=== PATIENT | male | born 1975 | race Hispanic/Latino ===

== ENCOUNTER 2024-01-20 22:26 | Emergency (ER) | payer BC ==
[~2024-01-20] VITALS: Ht 165.1 cm; Wt 77.1 kg
[2024-01-20 23:08] LABS: APPEARANCE,URINE CLEAR (CLEAR); BILIRUBIN,URINE NEGATIVE (NEGATIVE); COLOR,URINE COLORLESS (YELLOW); GLUCOSE, URINE (UA) NEGATIVE (NEGATIVE); KETONES,URINE NEGATIVE (NEGATIVE); LEUKOCYTE ESTERASE ,URINE 250 Leu/uL (NEGATIVE); NITRATE,URINE NEGATIVE (NEGATIVE); OCCULT BLOOD,URINE LARGE (NEGATIVE); PH,URINE 5.5 (5.0-8.0); PROTEIN,URINE NEGATIVE (NEGATIVE); UROBILINOGEN,URINE 0.2 mg/dL (0.2-1.0)
[2024-01-20 23:18] LABS: ADD UA MICROSCOPIC YES
[2024-01-20 23:25] LABS: BACTERIA,URINE None Seen /HPF (None Seen); MUCUS,URINE Rare LPF (None Seen); RBC,URINE 26-50 /HPF (0-1)
[2024-01-21 00:37] LABS: HEMATOCRIT 44.2 % (42-54); MEAN CORPUSCULAR HEMOGLOBIN 30.6 pg (27.0-33.0); MEAN CORPUSCULAR HGB CONC 34.4 g/dL (32.0-36.0); MEAN CORPUSCULAR VOLUME 89.1 fL (79-99); PLATELET COUNT (AUTO) 182 K/uL (130-400); RED BLOOD CELL COUNT(AUTO) 4.96 MIL/uL (4.50-6.20); RED CELL DISTRIBUTION WIDTH 12.6 % (11.0-15.5); WHITE BLOOD COUNT (AUTO) 6.6 K/uL (4.8-10.8)
[2024-01-21 00:48] LABS: CREATININE 0.8 mg/dL (0.5-1.3); POTASSIUM 3.6 mmol/L (3.5-5.1)
[2024-01-21 00:53] LABS: ALBUMIN 3.7 g/dL (3.5-5.0); BILIRUBIN,TOTAL 0.4 mg/dL (0.2-1.0); TOTAL PROTEIN, SERUM 7.2 g/dL (6.0-8.3)
[2024-01-21 00:54] LABS: BASOPHILS # (AUTO) 0.04 K/uL (0.00-0.20); BASOPHILS % (AUTO) 0.6 % (0.0-5.0); EOSINOPHILS # (AUTO) 0.23 K/uL (0.00-0.70); EOSINOPHILS % (AUTO) 3.5 % (0.0-8.0); IMMATURE GRANULOCYTE ABSOLUTE 0.02 K/uL (0-1); LYMPHOCYTES # (AUTO) 2.8 K/uL (1.0-4.8); LYMPHOCYTES % (AUTO) 42.1 % (21.0-51.0); MONOCYTES # (AUTO) 0.7 K/uL (0.1-1.0); MONOCYTES % (AUTO) 10.4 % (3.0-13.0); NEUTROPHILS # (AUTO) 2.8 K/uL (1.8-7.7); NEUTROPHILS % (AUTO) 43.1 % (40.0-77.0)
[2024-01-21] MEDS ORDERED: IOHEXOL 350 MG/ML 100ML INFUS..BTL IV ONE (01:02)
[2024-01-21 04:47] VITALS: BP 134/90; PULSE 68; RESP 18; TEMP 98.3; O2SAT 98
== END 2024-01-21 04:51 | disposition home or self-care (01) ==
LOC: EDH 22:26
DX: N20.0 Calculus of kidney (principal); R31.0 Gross hematuria; Z98.890 Other specified postprocedural states
CPT/HCPCS: 99284; 74178; 80053; 85025; 87086 ×2; 87186; 81001; 36415; Q9967

== ENCOUNTER 2025-02-25 13:49 | Emergency (ER) | payer BC ==
[~2025-02-25] VITALS: Ht 165.1 cm; Wt 69.9 kg
--- NOTE | 2025-02-25 13:55 | ERN ---
ED Note History of Present Illness Stated Complaint: NUMBNESS Chief Complaint: Numbness Time Seen by MD: 13:52 Time Seen by Midlevel: 13:57 Dictation: Mr Hidalgo is a 49 year old male with no reported chronic health issues who presented to the Emergency Department this afternoon for evaluation of numbness of his hands. He states that last evening he developed some posterior neck pain. He denies injury/fall or history of similar symptoms. He states he took a Tylenol p.m. and went to bed. He states he woke today with complaints of numbness in both of his hands. He states this afternoon symptoms worsened and he became anxious, developed headache, and had rapid heart rate. He denies fever, chills, shortness of breath, cough, chest pain, palpitations, edema, abdominal pain, nausea, vomiting, hematemesis, constipation, diarrhea, melena, hematochezia, dysuria, hematuria, flank pain, headache, dizziness, or focal weakness/paresthesia. Denies use of alcohol or recreational drugs. Allergies: Coded Allergies: No Known Allergies (Unverified Allergy, Unknown, 01/20/24) Home Meds Active Scripts Hydroxyzine HCl (Hydroxyzine HCl) 10 Mg Tablet, 1 TAB PO TID for anxiety, #6 TAB 0 Refills Prov:SHERRIE MAURO NP 02/25/25 Ondansetron (Ondansetron Odt) 4 Mg Tab.rapdis, 4 MG PO Q6HPRN PRN for nausea, #15 TAB 0 Refills Prov:SHERRIE MAURO NP 02/25/25 Sulfamethoxazole/Trimethoprim (Bactrim Ds Tablet) 800 Mg-160 Mg Tablet, 1 TAB PO BID for 10 Days, #20 TAB 0 Refills Prov:SHERRIE MAURO NP 02/25/25 Past Medical History Past Medical History: No Pertinent History Surgical History: Cholecystectomy, Other Surgical History Other: LEFT TESTICLE SX RN Note Reviewed/Agreed w/PFSH: Yes Review of System Dictation REVIEW OF SYSTEMS: CONSTITUTIONAL: Patient denies fevers, chills, sweats and weight changes. EYES: Patient denies any visual symptoms. EARS, NOSE, AND THROAT: No difficulties with hearing. No symptoms of rhinitis or sore throat. CARDIOVASCULAR: Patient denies chest pains, palpitations, orthopnea and paroxysmal nocturnal dyspnea. RESPIRATORY: No dyspnea on exertion, no wheezing or cough. GI: No nausea, vomiting, diarrhea, constipation, abdominal pain, hematochezia or melena. : No urinary hesitancy or dribbling. No nocturia or urinary frequency. No abnormal urethral discharge. MUSCULOSKELETAL: Reports posterior neck pain. NEUROLOGIC: No chronic headaches, no seizures. Denies balance issues, Denies difficulty swallowing, difficulty speaking or vision changes. Patient denies focal weakness. He reports numbness and tingling to both hands. Reports posterior headache. PSYCHIATRIC: Patient denies problems with mood disturbance. Reports feeling anxious. ENDOCRINE: No excessive urination or excessive thirst. DERMATOLOGIC: Patient denies any rashes or skin changes. Initial Vital Sign VS Vital Signs Date Time Temp Pulse Resp B/P (MAP) Pulse Ox O2 Delivery O2 Flow Rate FiO2 02/25/25 13:51 99.0 138 20 145/92 98 Room Air 0 02/25/25 13:55 21 Physical Exam Dictation Vital signs: Reviewed. Afebrile Constitutional: Slightly anxious. Significant other at bedside Head/Face: Normocephalic, atraumatic. Eyes: Periorbital areas with no swelling, redness, or edema. Lids and lashes are normal. Conjunctival injection is absent. Sclera anicteric. Pupils equal, round, reactive to light. ENT: Pinnas intact and no signs of trauma or erythema. Ear canals clear and no discharge. TMs no erythema. No nasal discharge or bleeding noted. Oropharynx with no exudate, redness, swelling, masses, exudates, or evidence of obstruction. Uvula midline. Mucous membranes moist. Neck: Trachea midline, no masses palpated, and no cervical lymphadenopathy. No swelling. Supple, full range of motion. Chest/Axilla: No tenderness, no crepitus, no paradoxical movement, no retractions. Cardiovascular: Regular rate, regular rhythm, no murmur, no gallops. Symmetric pulses. No peripheral edema. 12 lead EKG reflects a sinus tachycardia; rate 107. There are no acute ST-T changes. BP with slight elevation; 145/92 Respiratory: Tachypneic; RR 22 Lung sounds clear; no wheezes, rales or rhonchi. Room air SpO2 98% Gastrointestinal: Inspection is normal. No distention is appreciated. Bowel sounds are normal. No mass or organomegaly . There is no tenderness. No rebound. No rigidity. No voluntary or involuntary guarding. No Delong's sign. : Urine cloudy/yellow. Negative CVA tenderness bilaterally. Neurological: Normal speech, gross motor function intact, gross sensory function intact. No focal weakness. Musculoskeletal/Extremities: All extremities have full range of motion, no pain or tenderness on palpation. Symmetric pulses. Integumentary: Intact. Skin is normal color, warm and dry. Cap refill less than 2 seconds. Results (Laboratory/Radiology) Laboratory/Radiology Laboratory Tests Test 02/25/25 14:12 02/25/25 14:13 White Blood Count 11.9 K/uL (4.8-10.8) H Red Blood Count 5.14 MIL/uL (4.50-6.20) Hemoglobin 15.7 g/dL (14.0-18.0) Hematocrit 45.0 % (42-54) Mean Corpuscular Volume 87.5 fL (79-99) Mean Corpuscular Hemoglobin 30.5 pg (27.0-33.0) Mean Corpuscular Hemoglobin Concent 34.9 g/dL (32.0-36.0) Red Cell Distribution Width 12.9 % (11.0-15.5) Platelet Count 243 K/uL (130-400) Mean Platelet Volume 10.2 fL (7.5-10.5) Immature Granulocyte % (Auto) 0.3 % (0-1) Neutrophils (%) (Auto) 75.8 % (40.0-77.0) Lymphocytes (%) (Auto) 18.0 % (21.0-51.0) L Monocytes (%) (Auto) 5.4 % (3.0-13.0) Eosinophils (%) (Auto) 0.2 % (0.0-8.0) Basophils (%) (Auto) 0.3 % (0.0-5.0) Neutrophils # (Auto) 9.0 K/uL (1.8-7.7) H Lymphocytes # (Auto) 2.2 K/uL (1.0-4.8) Monocytes # (Auto) 0.6 K/uL (0.1-1.0) Eosinophils # (Auto) 0.02 K/uL (0.00-0.70) Basophils # (Auto) 0.04 K/uL (0.00-0.20) Absolute Immature Granulocyte (auto 0.04 K/uL (0-1) Nucleated Red Blood Cells 0.0 % (0.0-0.19) Sodium Level 140 mmol/L (136-145) Potassium Level 3.4 mmol/L (3.5-5.1) L Chloride Level 101 mmol/L (101-111) Carbon Dioxide Level 18 mmol/L (21-32) L Blood Urea Nitrogen 9 mg/dL (7-18) Creatinine 1.2 mg/dL (0.5-1.3) Glomerular Filtration Rate Calc 75 mL/min (>90) Random Glucose 138 mg/dL (70-105) H Total Calcium 9.1 mg/dL (8.5-10.1) Total Bilirubin 0.7 mg/dL (0.2-1.0) Direct Bilirubin 0.2 mg/dL (0.0-0.3) Aspartate Amino Transf (AST/SGOT) 14 U/L (10-37) Alanine Aminotransferase (ALT/SGPT) 23 U/L (12-78) Alkaline Phosphatase 89 U/L (50-136) Troponin I High Sensitivity < 4 ng/L (4-75) L Total Protein 7.6 g/dL (6.0-8.3) Albumin 4.1 g/dL (3.5-5.0) Urine Color YELLOW (YELLOW) Urine Appearance CLOUDY (CLEAR) H Urine pH 6.5 (5.0-8.0) Urine Specific [place] 1.021 (1.001-1.031) Urine Protein 30 mg/dL (NEGATIVE) H Urine Glucose (UA) NEGATIVE mg/dL (NEGATIVE) Urine Ketones 20 mg/dL (NEGATIVE) H Urine Occult Blood LARGE (NEGATIVE) H Urine Nitrate NEGATIVE (NEGATIVE) Urine Bilirubin NEGATIVE mg/dL (NEGATIVE) Urine Urobilinogen 2.0 mg/dL (0.2-1.0) H Urine Leukocyte Esterase 500 Abe/uL (NEGATIVE) H Urine RBC TNTC /HPF (0-1) H Urine WBC TNTC /HPF (0-1) H Urine Bacteria RARE /HPF (None Seen) Urine Yeast RARE /HPF (None Seen) Urine Opiates Screen NEGATIVE (NEGATIVE) Urine Barbiturates Screen NEGATIVE (NEGATIVE) Urine Phencyclidine Screen NEGATIVE (NEGATIVE) Urine Amphetamines Screen NEGATIVE (NEGATIVE) Urine Benzodiazepines Screen NEGATIVE (NEGATIVE) Urine Cocaine Screen NEGATIVE (NEGATIVE) Urine Marijuana (THC) Screen NEGATIVE (NEGATIVE) Labs Reviewed?: Yes EKG Comment: EKG Interpretation: Time Reviewed: 1409 Ventricular rate: 107 bpm CA Interval: 132 ms QRS duration: [address] segment elevation or depression. Clinical impression: Sinus tachycardia EKG Reviewed and interpreted by Dr. Velez X-RAY Comment: PATIENT: LESVIA HIDALGO MR#: [id number] : 1975 SEX: M AGE: 49 LOCATION: [facility] ORDER 1401 STATUS: [facility] ER REPORT#: [id number] SERVICE 1358 REASON: tachycardia ORDERING PHYSICIAN: SHERRIE MAURO NP PROCEDURE: CXR1VW - CHEST 1VW CHEST 1VW REASON: tachycardia COMPARISON: None. FINDINGS: Single view of the chest was obtained. Lungs are clear. Heart size is normal. There is no pulmonary vascular congestion. Mediastinum and bony thorax appear unremarkable. IMPRESSION: 1. Normal single view chest x-ray. DICTATED BY: DANI BATRES MD DATE: 02/25/251515 ELECTRONICALLY SIGNED BY: DANI BATRES MD DATE: 02/25/251518 CT Scan Comment: PATIENT: LESVIA HIDALGO MR#: [id number] : 1975 SEX: M AGE: 49 LOCATION: [facility] ORDER 1428 STATUS: REG ER [facility] REPORT#: [id number] SERVICE 142 REASON: posterior neck pain, hand numbness ORDERING PHYSICIAN: SHERRIE MAURO NP PROCEDURE: C SPIN WO - CT CERVICAL SPINE W/O CONTRAST EXAM: CT Cervical Spine Without IV contrast. CLINICAL HISTORY: posterior neck pain, hand numbness TECHNIQUE: Axial computed tomography images of the cervical spine without intravenous contrast. Sagittal and coronal reformatted images were generated. COMPARISON: None provided. FINDINGS: ALIGNMENT: Bony alignment is anatomic. DEGENERATIVE CHANGES: Mild degenerative changes with disc space narrowing and small osteophytes. SOFT TISSUES: The prevertebral soft tissues are within normal limits. BONES: No acute fracture or aggressive appearing osseous lesion. IMPRESSION: No fracture or dislocation in the cervical spine. Mild degenerative change. /[place] DICTATED BY: JERI ORR MD DATE: 02/25/251612 ELECTRONICALLY SIGNED BY: JERI ORR MD DATE: 02/25/251612 PATIENT: LESVIA HIDALGO MR#: [id number] : 1975 SEX: M AGE: 49 LOCATION: [facility] ORDER 27 STATUS: REG REPORT#: [id number] SERVICE 25 REASON: posterior neck pain, hand numbness ORDERING PHYSICIAN: SHERRIE MAURO NP PROCEDURE: HEAD WO - CT HEAD/BRAIN W/O CONTRAST EXAM: CT Head Without IV contrast. CLINICAL HISTORY: posterior neck pain, hand numbness TECHNIQUE: Axial computed tomography images of the head/brain without intravenous contrast. COMPARISON: None provided. FINDINGS: BRAIN: No evidence of acute hemorrhage. No mass lesion. No CT evidence for acute territorial infarct. No midline shift or extra-axial collections. VENTRICLES: No hydrocephalus. ORBITS: The orbits are unremarkable. SINUSES AND MASTOIDS: The paranasal sinuses and mastoid air cells are clear. BONES: No fracture. SOFT TISSUES: Unremarkable. IMPRESSION: No acute intracranial abnormality. /[place] DICTATED BY: JERI ORR MD DATE: 02/25/251613 ELECTRONICALLY SIGNED BY: JERI ORR MD DATE: 02/25/251613 ED Course ED Course Orders Procedure Category Date Status Time 12 Lead Ekg Tracing- EKG 02/25/25 Complete Technical 13:58 Cbc With Differential LAB 02/25/25 Complete 13:58 Basic Metabolic Panel LAB 02/25/25 Complete 13:58 Hepatic Function Panel LAB 02/25/25 Complete 13:58 Urinalysis Profile LAB 02/25/25 Complete 13:58 Drug Screen Urine LAB 02/25/25 Complete 13:58 Troponin I High LAB 02/25/25 Complete Sensitivity 13:58 Chest 1vw RAD 02/25/25 Resulted 13:58 Saline Lock Iv CPOE 02/25/25 Transmitted 13:58 0.9%Nacl 1000ml (Ns PHA 02/25/25 Complete 1000ml) 14:00 Lorazepam 2 Mg PHA 02/25/25 Complete (Ativan) 14:30 Diazepam 5 Mg/Ml 2 Ml PHA 02/25/25 Complete Syg (Valium 5 Mg/M 14:30 Ct Head/Brain W/O CT 02/25/25 Resulted Contrast 14:26 Ct Cervical Spine W/O CT 02/25/25 Resulted Contrast 14:26 Culture Urine JENNIFER 02/25/25 In Process 14:38 0.9% Nacl 500ml PHA 02/25/25 In Process Iv.Soln (Ns 500ml 16:00 Potassium Chloride PHA 02/25/25 In Process 20meq Er (K-Dur/Klor- 16:00 Ceftriaxone 1g Vial PHA 02/25/25 In Process (Rocephine 1g Inj) 16:30 Current Medications Medications (Trade) Dose Ordered Sig/Josefa Route PRN Reason Start Time Stop Time Status Last Admin Dose Admin Ceftriaxone Sodium (ROCEphine 1G INJ) 1 gm ONCE IVPB 02/25/25 16:30 02/25/25 20:30 Diazepam (VALium 5 MG/ML 2 ML SYG) 2.5 mg ONCE ONCE IVP 02/25/25 14:30 02/25/25 14:31 DC 02/25/25 14:45 Lorazepam 40 mg/ Sodium Chloride 40 ml @ 0 mls/hr PROTOCOL IVP 02/25/25 14:30 02/25/25 14:30 DC Potassium Chloride (K-Dur/Klor-Con 20meq) 40 meq ONCE PO 02/25/25 16:00 02/25/25 20:00 Sodium Chloride 500 ml @ 0 mls/hr ONCE IV 02/25/25 16:00 02/26/25 15:59 Sodium Chloride 1,000 ml @ 0 mls/hr ONCE ONCE IV 02/25/25 14:00 02/25/25 14:03 DC 02/25/25 14:45 Vital Signs Date Time Temp Pulse Resp B/P (MAP) Pulse Ox O2 Delivery O2 Flow Rate FiO2 02/25/25 15:45 98.2 85 12 123/82 98 Room Air* 0 21 02/25/25 13:55 99.0 138 20 145/92 98 Room Air* 0 21 02/25/25 13:51 99.0 138 20 145/92 98 Room Air 0 Patient arrived to ED tachycardic and tachypneic/hyperventilating and complaining of numbness to both hands as well as posterior neck/head pain. STAT noncontrast CT scan of brain negative for hemorrhage. CT cervical spine negative for fracture or severe stenosis. Laboratory findings as noted below. WBC 11.9, K 3.4, CO2 18, and . Troponin negative. UDS negative. UA cloudy; + protein, blood, ketones, leukocyte esterase, and UWBC TNTC. UCX pending. Symptoms resolved following dose Valium and NS 1500ml IV as bolus. He also received doses po KCL and IV dose Rocephin. . Repeat BP 123/82 and HR 82. He is calm. Voiding without difficulty/ negative CVA tenderness bilaterally. Findings were discussed with patient and significant other. They will follow up early next week at [facility] Medical Decision Making MDM MDM: Differential diagnosis: Intracranial hemorrhage, stroke, cervical stenosis, electrolyte derangement, tachy arrhythmia, anxiety reaction Rationale: Tests considered and ordered secondary to shared decision making include: EKG, x-ray, CT, lab Previous outside records reviewed: Old ER visits. Risk of complication and/or morbidity or mortality of patient management: None Medications-Per medication reconciliation Need for hospitalization: Patient does not meet criteria for hospitalization. Need for emergency major/minor surgery: No There are no social concerns with this patient. Prescription drug management: Bactrim DS, Zofran, Hydroxyzine Prescriptions will include symptomatic care Patient's prior external medical records from other ER visits were reviewed by me as indicated. Prior testing and results from previous visits were reviewed. Prior tests were taken into account with medical decision making and resource utilization, independent historian/historians were used to obtain complete medical history. I independently interpreted the test that were performed, results were reviewed by me and considered findings on radiology if ordered. Medical management and examination interpretation discussions were had by me with other qualified healthcare professionals as indicated for the patient's care. DX & DISP Disposition: Discharge Departure Impression: Primary Impression: Anxiety reaction Additional Impressions: UTI (urinary tract infection), Dehydration, Hypo kalemia Condition: Stable Scripts Hydroxyzine HCl (Hydroxyzine HCl) 10 Mg Tablet 1 TAB PO TID for anxiety, #6 TAB 0 Refills Prov: SHERRIE MAURO NP 02/25/25 Ondansetron (Ondansetron Odt) 4 Mg Tab.rapdis 4 MG PO Q6HPRN PRN for nausea, #15 TAB 0 Refills Prov: SHERRIE MAURO NP 02/25/25 Sulfamethoxazole/Trimethoprim (Bactrim Ds Tablet) 800 Mg-160 Mg Tablet 1 TAB PO BID for 10 Days, #20 TAB 0 Refills Prov: SHERRIE MAURO NP 02/25/25 Additional Instructions: You were diagnosed with urinary tract infection which is usually caused by bacteria in the blood. Continue the antibiotic Bactrim DS twice daily until finished. You should continue the antibiotic even if you are feeling better. Drink plenty of fluids as this helps flush bacteria from your urinary tract. Avoid alcohol and caffeine which can irritate the bladder. You may take acetaminophen or ibuprofen as needed for discomfort. You may take Zofran ODT as needed for nausea. Your potassium level was slightly low today and he received treatment in the ED. Low potassium can cause symptoms like muscle cramps, weakness, irregular heartbeats, or fatigue. Eat potassium rich foods ( bananas, oranges, tomatoes, potatoes), spinach, and beans. Your symptoms were likely worsened or triggered by an anxiety reaction. This is common during an acute illness and usually improves as your condition stabilized. Practice calming techniques such as slow deep breathing, grounding exercises, or gentle movement. You may take hydroxyzine every 8 hours as needed for anxiety. Follow up with your primary care physician early next week. Return to the emergency department if you have chest pain, trouble breathing or symptoms that you feel are concerning. Referrals: KIMBER CLARK MD (PCP) Time of Disposition: 16:25 SHERRIE MAURO NP Feb 25, 2025 13:55
[2025-02-25 14:25] LABS: IMMATURE GRANULOCYTE ABSOLUTE 0.04 K/uL (0-1); NUCLEATED RED BLOOD CELLS 0.0 % (0.0-0.19); PLATELET COUNT (AUTO) 243 K/uL (130-400); RED BLOOD CELL COUNT(AUTO) 5.14 MIL/uL (4.50-6.20); RED CELL DISTRIBUTION WIDTH 12.9 % (11.0-15.5); WHITE BLOOD COUNT (AUTO) 11.9 K/uL (4.8-10.8)
[2025-02-25 14:30] LABS: CREATININE 1.2 mg/dL (0.5-1.3); GLOMERULAR FILTR. RATE CALC 75.0 mL/min (>90); GLUCOSE,RANDOM 138.0 mg/dL (70-105); SODIUM SERUM 140.0 mmol/L (136-145); UREA NITROGEN, BLOOD 9.0 mg/dL (7-18)
[2025-02-25] MEDS ORDERED: LORAZEPAM IVP SCH (14:30)
[2025-02-25] MEDS ORDERED: [UNRECOGNIZED DRUG - OTHER] IVP SCH (14:30)
[2025-02-25 14:34] LABS: ASPARTATE AMINOTRANSFERASE 14.0 U/L (10-37); TOTAL PROTEIN, SERUM 7.6 g/dL (6.0-8.3)
[2025-02-25 14:36] LABS: APPEARANCE,URINE CLOUDY (CLEAR); GLUCOSE, URINE (UA) NEGATIVE (NEGATIVE); LEUKOCYTE ESTERASE ,URINE 500 Leu/uL (NEGATIVE); NITRATE,URINE NEGATIVE (NEGATIVE); OCCULT BLOOD,URINE LARGE (NEGATIVE)
[2025-02-25 14:38] LABS: ADD UA MICROSCOPIC YES
[2025-02-25 14:42] LABS: YEAST,URINE BUDDING RARE /HPF (None Seen)
[2025-02-25] MEDS: 0.9%NACL 1000ML 1,000 ML IV ONE (14:45)
[2025-02-25 14:56] LABS: AMPHET/METH SCREEN,URINE NEGATIVE (NEGATIVE); BARBITURATE SCREEN, URINE NEGATIVE (NEGATIVE); CANNABINOID SCREEN,URINE NEGATIVE (NEGATIVE); COCAINE SCREEN,URINE NEGATIVE (NEGATIVE)
--- NOTE | 2025-02-25 15:14 | HMCIMG ---
EXAM: CT Cervical Spine Without IV contrast. CLINICAL HISTORY: posterior neck pain, hand numbness TECHNIQUE: Axial computed tomography images of the cervical spine without intravenous contrast. Sagittal and coronal reformatted images were generated. COMPARISON: None provided. FINDINGS: ALIGNMENT: Bony alignment is anatomic. DEGENERATIVE CHANGES: Mild degenerative changes with disc space narrowing and small osteophytes. SOFT TISSUES: The prevertebral soft tissues are within normal limits. BONES: No acute fracture or aggressive appearing osseous lesion. IMPRESSION: No fracture or dislocation in the cervical spine. Mild degenerative change. /[place]
--- NOTE | 2025-02-25 15:15 | HMCIMG ---
EXAM: CT Head Without IV contrast. CLINICAL HISTORY: posterior neck pain, hand numbness TECHNIQUE: Axial computed tomography images of the head/brain without intravenous contrast. COMPARISON: None provided. FINDINGS: BRAIN: No evidence of acute hemorrhage. No mass lesion. No CT evidence for acute territorial infarct. No midline shift or extra-axial collections. VENTRICLES: No hydrocephalus. ORBITS: The orbits are unremarkable. SINUSES AND MASTOIDS: The paranasal sinuses and mastoid air cells are clear. BONES: No fracture. SOFT TISSUES: Unremarkable. IMPRESSION: No acute intracranial abnormality. /[place]
--- NOTE | 2025-02-25 15:19 | HMCIMG ---
CHEST 1VW REASON: tachycardia COMPARISON: None. FINDINGS: Single view of the chest was obtained. Lungs are clear. Heart size is normal. There is no pulmonary vascular congestion. Mediastinum and bony thorax appear unremarkable. IMPRESSION: 1. Normal single view chest x-ray.
[2025-02-25] MEDS ORDERED: ONDA-243 PO (16:11)
[2025-02-25] MEDS ORDERED: HYDR-3830 PO (16:11)
[2025-02-25] MEDS ORDERED: SULF1TAB42 PO (16:11)
--- NOTE | 2025-02-25 16:16 | EKG ---
[facility] Test Date: 2025-02-25 Test Time: 14:09:54 Pat Name: LESVIA HIDALGO Department: ED Room: Gender: [employer]: [id number] : 1975 Requested By: SHERRIE MAURO Order Number: [id number] Reading MD: Emil Puente Measurements Intervals [place] Rate: 107 P: 63 MT: 132 QRS: 24 QRSD: 66 T: 12 QT: 335 QTc: 448 Interpretive Statements Sinus tachycardia No previous ECG available for comparison Electronically Signed On 02-25-2025 18:13:41 CDT by Emil Puente Please click the below link to view image of tracing.
[2025-02-25] MEDS: 0.9% NACL 500ML IV.SOLN 500 ML IV SCH (16:26)
[2025-02-25] MEDS: PoTASSium chloRIDE 20MEQ ER 20 MEQ ERTAB PO SCH (16:28)
[2025-02-25 17:15] VITALS: BP 132/93; PULSE 85; RESP 14; TEMP 98.3; O2SAT 98
== END 2025-02-25 17:51 | disposition home or self-care (01) ==
LOC: EDH 13:49
DX: F41.1 Generalized anxiety disorder (principal); N39.0 Urinary tract infection, site not specified; E86.0 Dehydration; E87.6 Hypokalemia; Z90.49 Acquired absence of other specified parts of digestive tract
CPT/HCPCS: 99285; 70450; 96365; 96361; 71045; 96375; 80076; 84484; 80048; 80305; 85025; 87086 ×2; 87186; 36415; 72125; 93005; 81001; J7040; J7030; J3360; J0696